=== PATIENT | female | born 1940 | race Caucasian/White ===

== ENCOUNTER 2020-12-02 20:21 | Inpatient (IN) | payer OTHER, MEDICARE ==
[2020-12-02] MEDS ORDERED: Fentanyl 100 MCG/2 ML VIAL ONE ×2 (20:30→22:40)
[2020-12-02 20:53] LABS: #Eosinphils 0.1 thou/uL (0.0-0.7); #Lymphocytes 1.2 thou/uL (1.20-3.40); #Monocytes 1.1 thou/uL (0.11-0.59); #Neutrophils 11.9 thou/uL (1.40-6.50); %Basophils 0.2 % (0.0-1.0); %Eosinophils 0.6 % (0.0-10.0); %Lymphocytes 8.4 % (21.0-51.0); %Monocytes 7.6 % (0.0-10.0); %Neutrophils 83.3 % (42.0-75.0); Hemoglobin 11.6 g/dL (12.0-16.0); Mean Corpuscular HGB CONC 33.4 g/dL (32.0-36.0); Mean Corpuscular Hemoglobin 31.1 pg (27.0-31.0); Mean Corpuscular Volume 92.9 fL (78.0-98.0); Mean Platelet Volume 6.8 fL (7.4-10.4); Platelet Count 337 thou/uL (130-400); RBC Distribution Width 12.8 % (11.5-14.5); Red Blood Cell (RBC) Count 3.73 mill/uL (4.20-5.40); White Blood Cell (WBC) Count 14.3 thou/uL (4.8-10.8)
[2020-12-02] MEDS ORDERED: Ondansetron PF 4 MG/2 ML Vial ONE (21:17)
[2020-12-02 21:19] LABS: Bacteria/HPF 4+ HPF (None Seen); Bilirubin Negative (Negative); Blood, Urine 1+ (Negative); Clarity Extra Turbid (Clear); Glucose, Urine (Dipstick) Normal (Negative); Ketone, Urine Negative (Negative); Leukocyte 500 Leu/uL (Negative); Nitrite Negative (Negative); Protein, Urine (Dipstick) 20 mg/dL (Neg-Trace); RBC/HPF 21-50 HPF (0-3); Renal Epithelial 0-3 HPF (None Seen); Specific Gravity, Urine 1.016 (1.002-1.036); Squamous Epithelial 0-3 HPF (0-3); Urobilinogen Normal mg/dL (Less than 2); WBC/HPF Greater than 50 HPF (0-3); pH, Urine 7.5 (5.0-9.0)
[2020-12-02 21:22] LABS: ALT (SGPT) 21 U/L (8-55); AST (SGOT) 20 U/L (5-34); Albumin 3.3 g/dL (3.4-4.8); Alkaline Phosphatase 91 U/L (40-110); Anion Gap 12 mmol/L (10-20); BUN (Urea Nitrogen) 11 mg/dL (9.8-20.1); Bilirubin, Total 0.4 mg/dL (0.2-1.2); Calc. Creatinine Clearance 0 mL/min (70-130); Calcium 8.8 mg/dL (7.8-10.44); Carbon Dioxide 26 mmol/L (23-31); Chloride 105 mmol/L (98-107); Glucose 115 mg/dL (83-110); Potassium 3.9 mmol/L (3.5-5.1); Protein, Total 6.3 g/dL (5.8-8.1); Sodium 139 mmol/L (136-145)
[2020-12-02 21:29] LABS: PTT 29.3 sec (22.9-36.1); Prothrombin Time 13.7 sec (12.0-14.7)
[2020-12-03] MEDS ORDERED: HYDROcodone/Acetaminophen 5/325 mg Tablet PO PRN (00:30)
[2020-12-03] MEDS ORDERED: Ondansetron PF 4 MG/2 ML Vial IVP PRN (00:30)
[2020-12-03] MEDS: Morphine 4 MG/ML VIAL SLOW IVP PRN ×3 (02:41→09:42)
[2020-12-03] MEDS: cefTRIAXone\\ROCEPHIN 1 GM in Sodium Chloride 0.9% 100 ML IVPB SCH (02:59)
[2020-12-03 03:29] VITALS: BMI 31.0
[2020-12-03] MEDS: Sodium Chloride 0.9% 1,000 ML IV SCH ×2 (03:48→05:47)
[2020-12-03 04:43] LABS: SARS-CoV-2 NAA Rapid Test Not Detected (NotDetected)
[2020-12-03 05:47] LABS: #Eosinphils 0.2 thou/uL (0.0-0.7); #Lymphocytes 1.3 thou/uL (1.20-3.40); #Monocytes 1.2 thou/uL (0.11-0.59); #Neutrophils 11.5 thou/uL (1.40-6.50); %Basophils 0.3 % (0.0-1.0); %Eosinophils 1.4 % (0.0-10.0); %Monocytes 8.2 % (0.0-10.0); %Neutrophils 81.2 % (42.0-75.0); Hemoglobin 10.2 g/dL (12.0-16.0); Mean Corpuscular HGB CONC 32.3 g/dL (32.0-36.0); Mean Corpuscular Hemoglobin 30.1 pg (27.0-31.0); Mean Corpuscular Volume 93.3 fL (78.0-98.0); Platelet Count 311 thou/uL (130-400); RBC Distribution Width 12.9 % (11.5-14.5); White Blood Cell (WBC) Count 14.1 thou/uL (4.8-10.8)
[2020-12-03 06:06] LABS: Anion Gap 10 mmol/L (10-20); BUN (Urea Nitrogen) 9 mg/dL (9.8-20.1); Calc. Creatinine Clearance 97 mL/min (70-130); Calcium 8.3 mg/dL (7.8-10.44); Carbon Dioxide 24 mmol/L (23-31); Chloride 106 mmol/L (98-107); Glucose 105 mg/dL (83-110); Potassium 4.1 mmol/L (3.5-5.1); Sodium 136 mmol/L (136-145)
[2020-12-03] MEDS: Dextrose 5 %-0.45 % NaCl 1,000 ML IV SCH ×2 (11:37→19:55)
[2020-12-03] MEDS ORDERED: CEFAZOLIN 2 GM in Premix Bag 1 BAG IVPB SCH (12:00)
[2020-12-03] MEDS ORDERED: Fentanyl 100 MCG/2 ML VIAL ONE ×3 (13:06→23:02)
[2020-12-03] MEDS ORDERED: Glycopyrrolate 0.2 MG/ML 5 ML SYRINGE ONE (14:03)
[2020-12-03] MEDS ORDERED: PROPOFOL 200 MG/20 ML VIAL ONE (14:03)
[2020-12-03] MEDS ORDERED: PHENYLEPHRINE-NS 100 MCG/ML 10 ML SYRINGE ONE (14:03)
[2020-12-03] MEDS ORDERED: Rocuronium Bromide 10 MG/ML (10ML VIAL) ONE (14:03)
[2020-12-03] MEDS ORDERED: Dexamethasone 20 MG/5 ML VIAL ONE (14:03)
[2020-12-03] MEDS ORDERED: Ondansetron PF 4 MG/2 ML Vial ONE (14:03)
[2020-12-03] MEDS ORDERED: Lidocaine 1% PF 5 ML VIAL ONE (14:03)
[2020-12-03] MEDS ORDERED: Ondansetron HCl/PF 4 MG/2 ML Vial IVP PRN (16:15)
[2020-12-03] MEDS ORDERED: Clindamycin/D5W 900 mg/50 ml Premix Bag ONE (18:33)
[2020-12-04] MEDS: Metoprolol Tartrate 25 MG TAB PO SCH ×3 (00:38→21:53)
[2020-12-04] MEDS: Atorvastatin Calcium 20 MG TAB PO SCH ×2 (00:38→21:51)
[2020-12-04] MEDS: Clindamycin/D5W 900 MG in Premix Bag 1 BAG IVPB SCH ×3 (00:40→14:23)
[2020-12-04] MEDS: Morphine 4 MG/ML VIAL SLOW IVP PRN ×2 (01:00→09:51)
[2020-12-04] MEDS: cefTRIAXone\\ROCEPHIN 1 GM in Sodium Chloride 0.9% 100 ML IVPB SCH (02:46)
[2020-12-04 06:24] LABS: #Monocytes 1.7 thou/uL (0.11-0.59); #Neutrophils 14.5 thou/uL (1.40-6.50); %Eosinophils 0.1 % (0.0-10.0); %Lymphocytes 5.9 % (21.0-51.0); %Monocytes 9.9 % (0.0-10.0); %Neutrophils 84.1 % (42.0-75.0); Hemoglobin 10.4 g/dL (12.0-16.0); Mean Corpuscular HGB CONC 33.9 g/dL (32.0-36.0); Mean Corpuscular Hemoglobin 31.6 pg (27.0-31.0); Mean Corpuscular Volume 93.3 fL (78.0-98.0); Platelet Count 271 thou/uL (130-400); RBC Distribution Width 12.6 % (11.5-14.5); Red Blood Cell (RBC) Count 3.28 mill/uL (4.20-5.40); White Blood Cell (WBC) Count 17.3 thou/uL (4.8-10.8)
[2020-12-04 06:43] LABS: Anion Gap 10 mmol/L (10-20); BUN (Urea Nitrogen) 7 mg/dL (9.8-20.1); Calc. Creatinine Clearance 100 mL/min (70-130); Calcium 8.3 mg/dL (7.8-10.44); Carbon Dioxide 26 mmol/L (23-31); Chloride 103 mmol/L (98-107); Glucose 124 mg/dL (83-110); Sodium 135 mmol/L (136-145)
[2020-12-04 07:03] LABS: Free T4 (Free Thyroxine) 1.05 ng/dL (0.70-1.48); Thyroid Stimulating Hormone 0.5191 uIU/mL (0.35-4.94)
[2020-12-04] MEDS ORDERED: Pantoprazole 40 MG VIAL IVP SCH (09:00)
[2020-12-04] MEDS ORDERED: Enoxaparin Sodium 40 MG/0.4 ML SYRINGE SC SCH (09:00)
[2020-12-04] MEDS: Acetaminophen 325 MG TAB PO PRN ×2 (14:23→22:17)
[2020-12-04] MEDS ORDERED: Albuterol Sulfate 1.25 MG/3 ML NEB NEB PRN (17:12)
[2020-12-04] MEDS: Apixaban 2.5 MG TAB PO SCH (21:51)
[2020-12-05] MEDS: cefTRIAXone\\ROCEPHIN 1 GM in Sodium Chloride 0.9% 100 ML IVPB SCH (00:55)
[2020-12-05] MEDS: Metoprolol Tartrate 25 MG TAB PO SCH ×2 (07:55→20:08)
[2020-12-05] MEDS: Apixaban 2.5 MG TAB PO SCH ×2 (07:59→20:08)
[2020-12-05] MEDS ORDERED: Senokot S 8.6-50 MG TAB PO PRN (08:56)
[2020-12-05] MEDS ORDERED: Polyethylene Glycol 3350 17 GM Packet PO PRN ×2 (08:56→15:45)
[2020-12-05 09:32] LABS: #Eosinphils 0.3 thou/uL (0.0-0.7); #Lymphocytes 1.3 thou/uL (1.20-3.40); #Monocytes 1.1 thou/uL (0.11-0.59); #Neutrophils 9.1 thou/uL (1.40-6.50); %Basophils 0.3 % (0.0-1.0); %Eosinophils 2.1 % (0.0-10.0); %Lymphocytes 10.9 % (21.0-51.0); %Neutrophils 77.7 % (42.0-75.0); Hemoglobin 10.1 g/dL (12.0-16.0); Mean Corpuscular HGB CONC 32.1 g/dL (32.0-36.0); Mean Corpuscular Hemoglobin 29.9 pg (27.0-31.0); Mean Corpuscular Volume 93.3 fL (78.0-98.0); Mean Platelet Volume 7.2 fL (7.4-10.4); Platelet Count 303 thou/uL (130-400); RBC Distribution Width 12.6 % (11.5-14.5); Red Blood Cell (RBC) Count 3.39 mill/uL (4.20-5.40); White Blood Cell (WBC) Count 11.8 thou/uL (4.8-10.8)
[2020-12-05] MEDS ORDERED: Ibuprofen 200 MG TAB PO SCH (09:45)
[2020-12-05 09:52] LABS: Anion Gap 11 mmol/L (10-20); BUN (Urea Nitrogen) 9 mg/dL (9.8-20.1); Calc. Creatinine Clearance 97 mL/min (70-130); Calcium 8.1 mg/dL (7.8-10.44); Carbon Dioxide 23 mmol/L (23-31); Chloride 105 mmol/L (98-107); Glucose 113 mg/dL (83-110); Potassium 3.8 mmol/L (3.5-5.1); Sodium 135 mmol/L (136-145)
[2020-12-05] MEDS: Ibuprofen 200 MG TAB PO SCH ×2 (18:33→20:09)
[2020-12-05] MEDS: Atorvastatin Calcium 20 MG TAB PO SCH (20:08)
[2020-12-05] MEDS: Senokot S 8.6-50 MG TAB PO SCH (20:08)
[2020-12-05] MEDS: Cipro 250 MG TAB PO SCH (20:09)
[2020-12-06] MEDS: Cipro 250 MG TAB PO SCH (06:03)
[2020-12-06 06:39] LABS: Anion Gap 9 mmol/L (10-20); BUN (Urea Nitrogen) 12 mg/dL (9.8-20.1); Calc. Creatinine Clearance 99 mL/min (70-130); Calcium 8.4 mg/dL (7.8-10.44); Carbon Dioxide 25 mmol/L (23-31); Chloride 111 mmol/L (98-107); Glucose 89 mg/dL (83-110); Potassium 3.8 mmol/L (3.5-5.1); Sodium 141 mmol/L (136-145)
[2020-12-06] MEDS: Metoprolol Tartrate 25 MG TAB PO SCH (08:46)
[2020-12-06] MEDS: Senokot S 8.6-50 MG TAB PO SCH (08:46)
[2020-12-06] MEDS: Apixaban 2.5 MG TAB PO SCH (08:46)
[2020-12-06] MEDS: Ibuprofen 200 MG TAB PO SCH ×2 (08:47→16:00)
[2020-12-06] MEDS ORDERED: traMADol HCl 50 MG TAB PO SCH (09:19)
[2020-12-06 11:53] VITALS: BP 108/56; TEMP 97.7
== END 2020-12-06 16:15 | DRG 480 ==
LOC: ERS 20:21 → SURG B 22:02 → IMCU/EMU 12-03 18:19 → SURG B 12-04 14:44 → SURG A 12-05 12:38
PROVIDERS: ADMIT Internal Medicine; ATTEND Internal Medicine
PROC: 0PSH04Z Reposition Right Radius with Internal Fixation Device, Open Approach (ICD-10-PCS; principal; 2020-12-03)
PROC: 0QS636Z Reposition Right Upper Femur with Intramedullary Internal Fixation Device, Percutaneous Approach (ICD-10-PCS; 2020-12-03)
DX: S52.501A Unspecified fracture of the lower end of right radius, initial encounter for closed fracture (principal); S72.001A Fracture of unspecified part of neck of right femur, initial encounter for closed fracture; N30.00 Acute cystitis without hematuria; S52.611A Displaced fracture of right ulna styloid process, initial encounter for closed fracture; Z66 Do not resuscitate; Z20.822 Contact with and (suspected) exposure to COVID-19; W01.0XXA Fall on same level from slipping, tripping and stumbling without subsequent striking against object, initial encounter; B96.89 Other specified bacterial agents as the cause of diseases classified elsewhere; D64.9 Anemia, unspecified; R93.89 Abnormal findings on diagnostic imaging of other specified body structures; I11.0 Hypertensive heart disease with heart failure; E78.2 Mixed hyperlipidemia; R00.0 Tachycardia, unspecified; I51.7 Cardiomegaly; G30.1 Alzheimer's disease with late onset; F02.80 Dementia in other diseases classified elsewhere, unspecified severity, without behavioral disturbance, psychotic disturbance, mood disturbance, and anxiety; A80.9 Acute poliomyelitis, unspecified; G47.33 Obstructive sleep apnea (adult) (pediatric); I50.9 Heart failure, unspecified; E66.9 Obesity, unspecified; Z90.710 Acquired absence of both cervix and uterus; Z79.82 Long term (current) use of aspirin; Z79.899 Other long term (current) drug therapy; Z88.5 Allergy status to narcotic agent; Z88.0 Allergy status to penicillin; Z88.8 Allergy status to other drugs, medicaments and biological substances; Z68.31 Body mass index [BMI] 31.0-31.9, adult
CPT/HCPCS: 29125; 36415; 51702; 71045; 72170; 76000; 80048; 80053; 81003; 81015; 83880; 84439; 84443; 84481; 85025; 85610; 85730; 87077; 87086; 93005; 93306; 94660; 96374; 96375; 96376; C1713; C1769; C9113; J0696; J1100; J1650; J2270; J2405; J2704; J3010; J3490; J7042; U0002

== ENCOUNTER 2021-09-15 15:32 | Inpatient (IN) | payer MEDICARE, OTHER ==
[~2021-09-15 15:32] MED LIST: Iopamidol-370 76% 500 ML 1 ML ONE
[2021-09-15 17:00] LABS: #Lymphocytes 2.1 thou/uL (1.20-3.40); #Monocytes 1.2 thou/uL (0.11-0.59); #Neutrophils 13.1 thou/uL (1.40-6.50); %Basophils 0.2 % (0.0-1.0); %Eosinophils 0.2 % (0.0-10.0); %Lymphocytes 12.7 % (21.0-51.0); %Monocytes 7.3 % (0.0-10.0); %Neutrophils 79.7 % (42.0-75.0); Hemoglobin 13.1 g/dL (12.0-16.0); Mean Corpuscular HGB CONC 33.4 g/dL (32.0-36.0); Mean Corpuscular Hemoglobin 31.1 pg (27.0-31.0); Mean Corpuscular Volume 93.1 fL (78.0-98.0); Platelet Count 373 thou/uL (130-400); RBC Distribution Width 11.9 % (11.5-14.5); White Blood Cell (WBC) Count 16.4 thou/uL (4.8-10.8)
[2021-09-15] MEDS ORDERED: Lidocaine 1% (PF) 30 ML VIAL ONE (17:45)
[2021-09-15 17:57] LABS: ALT (SGPT) 12 U/L (8-55); AST (SGOT) 21 U/L (5-34); Albumin 3.7 g/dL (3.4-4.8); Alkaline Phosphatase 97 U/L (40-110); Anion Gap 15 mmol/L (10-20); BUN (Urea Nitrogen) 13 mg/dL (9.8-20.1); Bilirubin, Total 0.8 mg/dL (0.2-1.2); CK (CPK) 28 U/L (29-168); Calc. Creatinine Clearance 0 mL/min (70-130); Calcium 9.5 mg/dL (7.8-10.44); Carbon Dioxide 23 mmol/L (23-31); Chloride 103 mmol/L (98-107); Globulin 4.2 g/dL (2.4-3.5); Glucose 88 mg/dL (83-110); Lipase 4 U/L (8-78); Potassium 4.3 mmol/L (3.5-5.1); Protein, Total 7.9 g/dL (5.8-8.1); Sodium 137 mmol/L (136-145)
[2021-09-15 18:10] LABS: Bacteria/HPF Rare-Few HPF (None Seen); Bilirubin Negative (Negative); Blood, Urine 2+ (Negative); Clarity Cloudy (Clear); Glucose, Urine (Dipstick) Normal (Negative); Ketone, Urine 40 mg/dL (Negative); Leukocyte Negative Leu/uL (Negative); Nitrite Negative (Negative); Protein, Urine (Dipstick) 30 mg/dL (Neg-Trace); Specific Gravity, Urine 1.023 (1.002-1.036); Squamous Epithelial 0-3 HPF (0-3); Urobilinogen Normal mg/dL (Less than 2)
[2021-09-15 18:54] LABS: RBC Count-Automated (BF) 58309 /cu.mm; WBC/Nucleated-Auto (BF) 5245 /cu.mm
[2021-09-15 19:47] LABS: BF Color Red; Body Fluid Source Synovial Fluid; Clarity Hazy (Clear)
[2021-09-15 19:48] LABS: BF Segmented Neutrophils 82 %; Cell Count Non Hematic 10 %; Lymphocytes 8 %
[2021-09-15] MEDS ORDERED: Ondansetron ODT 4 MG TAB PO PRN (20:18)
[2021-09-15] MEDS ORDERED: Senokot S 8.6-50 MG TAB PO PRN (20:18)
[2021-09-15] MEDS ORDERED: Ondansetron PF 4 MG/2 ML Vial IVP PRN (20:18)
[2021-09-15 21:16] VITALS: BMI 31.6
[2021-09-15] MEDS: Sodium Chloride 0.9% 1,000 ML IV SCH (21:29)
[2021-09-15] MEDS: Acetaminophen 325 MG TAB PO PRN (21:32)
[2021-09-15] MEDS ORDERED: traMADol HCl 50 MG TAB PO PRN (22:48)
[2021-09-15] MEDS ORDERED: Enoxaparin Sodium 40 MG/0.4 ML SYRINGE SC SCH (23:00)
[2021-09-15] MEDS: Cefepime 1 GM in Sodium Chloride 0.9% 100 ML IVPB SCH (23:47)
[2021-09-16] MEDS: Sodium Chloride 0.9% 1,000 ML IV SCH ×3 (06:00→14:46)
[2021-09-16 06:11] LABS: #Eosinphils 0.1 thou/uL (0.0-0.7); #Lymphocytes 1.8 thou/uL (1.20-3.40); #Monocytes 1.2 thou/uL (0.11-0.59); #Neutrophils 7.2 thou/uL (1.40-6.50); %Basophils 0.1 % (0.0-1.0); %Eosinophils 0.5 % (0.0-10.0); %Lymphocytes 17.6 % (21.0-51.0); %Monocytes 11.5 % (0.0-10.0); %Neutrophils 70.3 % (42.0-75.0); Hemoglobin 10.1 g/dL (12.0-16.0); Mean Corpuscular HGB CONC 32.3 g/dL (32.0-36.0); Mean Corpuscular Hemoglobin 30.4 pg (27.0-31.0); Mean Corpuscular Volume 94.3 fL (78.0-98.0); Mean Platelet Volume 7.6 fL (7.4-10.4); Platelet Count 286 thou/uL (130-400); RBC Distribution Width 11.6 % (11.5-14.5); Red Blood Cell (RBC) Count 3.32 mill/uL (4.20-5.40); White Blood Cell (WBC) Count 10.2 thou/uL (4.8-10.8)
[2021-09-16 06:45] LABS: Anion Gap 13 mmol/L (10-20); BUN (Urea Nitrogen) 9 mg/dL (9.8-20.1); Calc. Creatinine Clearance 118 mL/min (70-130); Carbon Dioxide 18 mmol/L (23-31); Chloride 111 mmol/L (98-107); Glucose 88 mg/dL (83-110); Potassium 3.2 mmol/L (3.5-5.1); Sodium 139 mmol/L (136-145)
[2021-09-16] MEDS: FLU VACC QS2021-22(65YR UP)/PF 240 MCG/0.7 ML SYRINGE IM ONE ×2 (06:58→14:22)
[2021-09-16 08:36] LABS: Magnesium 1.9 mg/dL (1.6-2.6); Phosphorus 2.1 mg/dL (2.3-4.7)
[2021-09-16] MEDS ORDERED: Metoprolol Tartrate 25 MG TAB PO SCH (09:00)
[2021-09-16] MEDS ORDERED: Potassium Phosphate 15 MMOL in Sodium Chloride 0.9% 250 ML 250 ML IVPB SCH (09:30)
[2021-09-16] MEDS ORDERED: Magnesium 2 GM/50 ML 2 GM in Premix Bag 1 BAG IVPB SCH (09:30)
[2021-09-16] MEDS: Senokot S 8.6-50 MG TAB PO SCH ×2 (09:42→20:52)
[2021-09-16] MEDS: Metoprolol Tartrate 25 MG TAB PO SCH ×2 (09:47→20:52)
[2021-09-16] MEDS: Potassium Chloride 20 MEQ TAB PO SCH (09:50)
[2021-09-16] MEDS: Saccharomyces boulardii 250 MG CAP PO SCH (09:50)
[2021-09-16] MEDS ORDERED: Lidocaine 1% PF 10 ML AMP ONE (12:30)
[2021-09-16] MEDS ORDERED: EPINEPHrine 1 MG/ML AMP ONE (12:30)
[2021-09-16] MEDS ORDERED: Iopamidol 300 61% 100 ML VIAL FS ONE (12:30)
[2021-09-16] MEDS ORDERED: Cefepime 1 GM VIAL ONE (13:11)
[2021-09-16] MEDS: Cefepime 1 GM in Sodium Chloride 0.9% 100 ML IVPB SCH (13:43)
[2021-09-16 15:46] LABS: SARS-CoV-2 PCR by NAA Not Detected (NotDetected)
[2021-09-16] MEDS: Acetaminophen 325 MG TAB PO PRN (20:49)
[2021-09-16] MEDS ORDERED: Enoxaparin Sodium 40 MG/0.4 ML SYRINGE SC SCH (21:00)
[2021-09-17 05:46] LABS: #Eosinphils 0.1 thou/uL (0.0-0.7); #Lymphocytes 1.8 thou/uL (1.20-3.40); #Monocytes 1.1 thou/uL (0.11-0.59); #Neutrophils 6.2 thou/uL (1.40-6.50); %Basophils 0.2 % (0.0-1.0); %Eosinophils 1.5 % (0.0-10.0); %Lymphocytes 19.7 % (21.0-51.0); %Monocytes 11.5 % (0.0-10.0); %Neutrophils 67.1 % (42.0-75.0); Hemoglobin 11.8 g/dL (12.0-16.0); Mean Corpuscular HGB CONC 32.5 g/dL (32.0-36.0); Mean Corpuscular Hemoglobin 30.5 pg (27.0-31.0); Mean Corpuscular Volume 93.8 fL (78.0-98.0); Mean Platelet Volume 7.3 fL (7.4-10.4); Platelet Count 295 thou/uL (130-400); RBC Distribution Width 11.6 % (11.5-14.5); Red Blood Cell (RBC) Count 3.89 mill/uL (4.20-5.40); White Blood Cell (WBC) Count 9.3 thou/uL (4.8-10.8)
[2021-09-17 06:03] LABS: Anion Gap 11 mmol/L (10-20); BUN (Urea Nitrogen) 7 mg/dL (9.8-20.1); Calc. Creatinine Clearance 104 mL/min (70-130); Calcium 8.3 mg/dL (7.8-10.44); Carbon Dioxide 19 mmol/L (23-31); Chloride 110 mmol/L (98-107); Glucose 80 mg/dL (83-110); Magnesium 2.2 mg/dL (1.6-2.6); Potassium 3.4 mmol/L (3.5-5.1); Sodium 137 mmol/L (136-145)
[2021-09-17 06:10] LABS: Phosphorus 2.5 mg/dL (2.3-4.7)
[2021-09-17] MEDS: Metoprolol Tartrate 25 MG TAB PO SCH ×2 (09:47→20:20)
[2021-09-17] MEDS: Senokot S 8.6-50 MG TAB PO SCH ×2 (09:50→20:21)
[2021-09-17] MEDS: Potassium Chloride 20 MEQ TAB PO SCH (09:50)
[2021-09-17] MEDS: Saccharomyces boulardii 250 MG CAP PO SCH (09:51)
[2021-09-17] MEDS: predniSONE 20 MG TAB PO SCH ×2 (13:30→14:07)
[2021-09-17] MEDS ORDERED: Potassium Bicarbonate/Cit Ac 20 MEQ TAB PO SCH (17:00)
[2021-09-17] MEDS: Sodium Chloride 0.9% 1,000 ML IV SCH (17:57)
[2021-09-17] MEDS: Acetaminophen 325 MG TAB PO PRN (20:21)
[2021-09-18] MEDS ORDERED: predniSONE 20 MG TAB PO SCH (08:00)
[2021-09-18] MEDS: Potassium Chloride 20 MEQ TAB PO SCH (08:38)
[2021-09-18] MEDS: Senokot S 8.6-50 MG TAB PO SCH (08:39)
[2021-09-18] MEDS: Metoprolol Tartrate 25 MG TAB PO SCH (08:39)
[2021-09-18] MEDS: Saccharomyces boulardii 250 MG CAP PO SCH (08:39)
[2021-09-18 11:46] VITALS: BP 146/74; TEMP 97.4
== END 2021-09-18 14:53 | DRG 554 ==
LOC: ERS 15:32 → T4-B 19:31 → OBSVTOIN 09-16 08:03
PROVIDERS: ADMIT Student in an Organized Health Care Education/Training Program; ATTEND Internal Medicine
PROC: 3E03329 Introduction of Other Anti-infective into Peripheral Vein, Percutaneous Approach (ICD-10-PCS; principal; 2021-09-16)
PROC: 0R9N3ZZ Drainage of Right Wrist Joint, Percutaneous Approach (ICD-10-PCS; 2021-09-16)
DX: M11.232 Other chondrocalcinosis, left wrist (principal); L02.414 Cutaneous abscess of left upper limb; Z66 Do not resuscitate; Z20.822 Contact with and (suspected) exposure to COVID-19; I10 Essential (primary) hypertension; E78.5 Hyperlipidemia, unspecified; F03.90 Unspecified dementia, unspecified severity, without behavioral disturbance, psychotic disturbance, mood disturbance, and anxiety; R29.6 Repeated falls; E86.0 Dehydration; E87.6 Hypokalemia; E83.42 Hypomagnesemia; E83.39 Other disorders of phosphorus metabolism; D53.9 Nutritional anemia, unspecified; Z88.0 Allergy status to penicillin; Z88.5 Allergy status to narcotic agent; Z88.8 Allergy status to other drugs, medicaments and biological substances; Z79.51 Long term (current) use of inhaled steroids; Z79.899 Other long term (current) drug therapy; Z86.16 Personal history of COVID-19; Z90.710 Acquired absence of both cervix and uterus; Z90.49 Acquired absence of other specified parts of digestive tract
CPT/HCPCS: 20605; 20610; 36415; 51701; 71045; 71275; 76999; 77002; 80048; 80053; 81003; 81015; 82550; 82607; 82746; 83605; 83690; 83735; 83880; 84100; 84484; 84550; 85025; 85060; 85379; 85652; 86140; 87040; 87086; 87205; 89051; 89060; 93005; G0378; J0171; J0692; J1650; J2001; J3475; J3490; J7050; J7512; Q9967; U0003; U0005